=== PATIENT | male | born 1935 | race Caucasian/White ===

== ENCOUNTER 2024-04-07 19:53 | Emergency (ER) | payer OTHER ==
[~2024-04-07] VITALS: Ht 165.1 cm; Wt 53.6 kg
[2024-04-07 20:19] LABS: CALCIUM 8.3 mg/dL (8.5-10.1); CARBON DIOXIDE 22 mmol/L (21-32); CHLORIDE 103 mmol/L (98-107); CREATININE 1.8 mg/dL (0.6-1.3); GLUCOSE 134 mg/dL (74-106); POTASSIUM 4.6 mmol/L (3.5-5.1); SODIUM SERUM 136 mmol/L (136-145); UREA NITROGEN, BLOOD 41 mg/dL (7-18)
[2024-04-07 20:20] LABS: BASOPHILS % (AUTO) 0.5 % (0.0-2.0); EOSINOPHILS % (AUTO) 0.4 % (0.0-7.0); HEMATOCRIT 27.9 % (36.7-47.1); HEMOGLOBIN 9.3 g/dL (12.5-16.3); LYMPHOCYTES # (AUTO) 0.8 K/uL (0.8-4.8); LYMPHOCYTES % (AUTO) 13.8 % (20.5-51.5); MEAN CORPUSCULAR HEMOGLOBIN 28.3 uug (23.8-33.4); MEAN CORPUSCULAR HGB CONC 33 g/dL (32.5-36.3); MEAN CORPUSCULAR VOLUME 85.1 fL (73.0-96.2); MONOCYTES # (AUTO) 0.2 K/uL (0.1-1.30); NEUTROPHILS # (AUTO) 4.7 K/uL (1.8-8.9); NEUTROPHILS % (AUTO) 81.3 % (38.5-71.5); PLATELET COUNT (AUTO) 257 K/uL (152-348); RED BLOOD CELL COUNT(AUTO) 3.28 MIL/uL (4.06-5.63); WHITE BLOOD COUNT (AUTO) 5.7 K/uL (3.6-10.2)
[2024-04-07 20:23] LABS: C-REACTIVE PROTEIN 11.56 mg/dL (0.00-0.30); DIFFERENTIAL COMMENT 1
[2024-04-07 20:25] LABS: ALANINE AMINOTRANSFERASE 14 U/L (16-63); ALBUMIN 2.3 g/dL (3.4-5.0); ALKALINE PHOSPHATASE 328 U/L (50-136); ASPARTATE AMINOTRANSFERASE 18 U/L (15-37); BILIRUBIN,TOTAL 0.3 mg/dL (0.2-1.0); MAGNESIUM 2.2 mg/dL (1.8-2.4); TOTAL PROTEIN, SERUM 6.3 g/dL (6.4-8.2)
[2024-04-07] MEDS: IV NORMAL SALINE 500 ML BAG IV ONE (20:27)
[2024-04-07] MEDS ORDERED: CEFTRIAXONE /D5W 50ML IVPB **ER PYXIS IV ONE (20:32)
[2024-04-07] MEDS ORDERED: FINA5TAB3 PO (20:33)
[2024-04-07] MEDS ORDERED: METO25TA6 PO (20:33)
[2024-04-07] MEDS ORDERED: ATOR20TA PO (20:33)
[2024-04-07] MEDS ORDERED: METF-866 PO (20:33)
[2024-04-07] MEDS ORDERED: MIRT-121 PO (20:33)
[2024-04-07] MEDS ORDERED: LOSA25TA3 PO (20:33)
[2024-04-07] MEDS ORDERED: LEVO100T10 PO (20:33)
[2024-04-07] MEDS: CEFTRIAXONE 1 G in IV DEXTROSE 5% 50 ML IV ONE (20:35)
[2024-04-07] MEDS ORDERED: AZITHROMYCIN 500MG/ D5W 250ML IVPB **ER PYXIS ONLY IV ONE (20:36)
[2024-04-07] MEDS: AZITHROMYCIN IV 500 MG in IV DEXTROSE 5% 250 ML IV ONE (20:50)
[2024-04-07] MEDS ORDERED: MELATONIN 3 MG TABLET ONE (20:59)
[2024-04-07] MEDS: MELATONIN 3 MG TABLET PO SCH (21:01)
[2024-04-07] MEDS ORDERED: AMOX-430 PO (21:10)
[2024-04-07] MEDS ORDERED: DOXY-326 PO (21:10)
[2024-04-07] MEDS: QUETIAPINE FUMARATE 25 MG TABLET PO ONE (22:00)
[2024-04-07 22:01] VITALS: BP 104/73; O2SAT 94
== END 2024-04-07 22:01 | disposition home or self-care (01) ==
LOC: ER 20:03
DX: J18.9 Pneumonia, unspecified organism (principal); R05.9 Cough, unspecified; N17.9 Acute kidney failure, unspecified; I48.91 Unspecified atrial fibrillation; Z20.822 Contact with and (suspected) exposure to COVID-19; Z79.890 Hormone replacement therapy
CPT/HCPCS: 99291; 96365; 71045; 96375; 87426; 87804 ×2; 80053; 83735; 85025; 84145; 85610; 86140; 87040 ×2; 36415; 93005; J0456; J0696; J7040; A4606; A4663